=== PATIENT | male | born 1930 | race Caucasian/White ===

== ENCOUNTER 2020-04-08 22:42 | Emergency (ER) | payer OTHER ==
--- OUTSIDE RECORDS SUMMARY | 2020-04-08 22:43 | XMS REPORT | Continuity of Care Document ---
:1930 Author Organization [facility] t Address [address] [place] [address] [place] [id number] Care Team Providers Name Role Phone Unavailable Unavailable Unavailable Problems This patient has no known problems. Allergies, Adverse Reactions, Alerts This patient has no known allergies or adverse reactions. Medications This patient has no known medications. Procedures This patient has no known procedures. Results This patient has no known results.
[2020-04-09] MEDS ORDERED: NA CHLORIDE 0.9% 500 ML ONE (00:25)
[2020-04-09 01:01] LABS: Absolute Lymphocytes (CBC) 1.2 K/uL (0.7-4.9); Basophils % 0.1 % (0-1.3); Hematocrit 35.7 % (39.6-49.0); Lymphocytes % 11.1 % (15.3-44.8); MPV 10.2 fL (7.6-11.3); RBC Red Blood Cell Count 3.93 M/uL (4.33-5.43)
[2020-04-09 01:14] LABS: Urine RBC TNTC /HPF (NONE SEEN)
[2020-04-09 01:15] LABS: Urine Bacteria 20-50 /HPF (NONE SEEN); Urine Culture Reflex Order REFLEXED
[2020-04-09 01:22] LABS: Albumin 3.5 g/dL (3.4-5.0); Bilirubin Direct 0.1 mg/dL (0-0.2); Bilirubin Total 0.3 mg/dL (0.2-1.0); Potassium 4.1 mmol/L (3.5-5.1); Protein, Total 6.6 g/dL (6.4-8.2)
[2020-04-09] MEDS ORDERED: CEFTRIAXONE/SWI 1gm 1 GM/10 ML SYR ONE (01:47)
--- NOTE | 2020-04-09 03:11 | EDPHYS ---
Physician Documentation [facility] Name: Russ Strong Age: 89 yrs Sex: Male : 1930 Arrival Date: 04/08/2020 Time: 22:45 Bed 13 Private MD: ED Physician Thomas Henderson HPI: 04/08 23:30 This 89 yrs old Male presents to ER via Ambulatory with complaints of Penile cp Bleeding. 23:30 The patient presents with urinary symptoms, hematuria. Onset: The symptoms/episode cp began/occurred 2 day(s) ago. Associated signs and symptoms: Pertinent negatives: abdominal pain, dysuria, fever, vomiting. Severity of symptoms: in the emergency department the symptoms are unchanged, despite home interventions. Patient patient reports having similar episodes of hematuria after taking ASA in the past that usually goes away after stopping the ASA. Patient reports he last took ASA over 1 week ago. Historical: - Allergies: 23:48 Codeine; jb4 - Home Meds: 23:48 levothyroxine 125 mcg tab [Active]; Omeprazole Oral [Active]; Simvastatin Oral jb4 [Active]; aspirin 81 mg Oral chew [Active]; finasteride oral oral [Active]; - PMHx: 23:48 CVA; High Cholesterol; Hypothyroidism; Cardia Arrythmia; Hernia; jb4 - PSHx: 23:48 Hernia repair; Cholecystectomy; Shoulder; jb4 - Immunization history:: Adult Immunizations up to date. - Social history:: Smoking status: Patient denies any tobacco usage or history of. Patient/guardian denies using alcohol, street drugs. ROS: 23:35 Constitutional: Negative for body aches, chills, fever, poor PO intake. cp 23:35 Eyes: Negative for injury, pain, redness, and discharge. cp 23:35 ENT: Negative for ear pain, sore throat, difficulty swallowing, difficulty handling secretions. 23:35 Cardiovascular: Negative for chest pain, palpitations. 23:35 Respiratory: Negative for cough, shortness of breath, wheezing. 23:35 Abdomen/GI: Negative for abdominal pain, nausea, vomiting, and diarrhea. 23:35 Back: Negative for pain at rest, pain with movement. 23:35 : Positive for hematuria, Negative for burning with urination, testicular pain 23:35 Neuro: Negative for altered mental status, dizziness, headache, syncope, weakness. 23:35 All other systems are negative. Exam: 23:40 Constitutional: The patient appears in no acute distress, alert, awake, cp non-diaphoretic, non-toxic, well developed, well nourished. 23:40 Head/Face: Normocephalic, atraumatic. cp 23:40 Eyes: Periorbital structures: appear normal, Conjunctiva: normal, no exudate, no injection, Sclera: no appreciated abnormality, Lids and lashes: appear normal, bilaterally. 23:40 ENT: External ear(s): are unremarkable, Nose: is normal, Mouth: Lips: moist, Oral mucosa: moist, Posterior pharynx: Airway: no evidence of obstruction, patent. 23:40 Chest/axilla: Inspection: normal, Palpation: is normal, no crepitus, no tenderness. 23:40 Cardiovascular: Rate: normal, Rhythm: regular, Edema: is not appreciated, JVD: is not appreciated. 23:40 Respiratory: the patient does not display signs of respiratory distress, Respirations: normal, no use of accessory muscles, no retractions, labored breathing, is not present, Breath sounds: are clear throughout, no decreased breath sounds. 23:40 Abdomen/GI: Inspection: abdomen appears normal, Bowel sounds: active, all quadrants, Palpation: abdomen is soft and non-tender, in all quadrants. 23:40 Back: pain, is absent, ROM is normal. Vital Signs: 23:15 BP 148 / 93; Pulse 66; Resp 16; Temp 98.1(O); Pulse Ox 99% on R/A; Weight 77.11 kg (R); jb4 Height 5 ft. 11 in. (180.34 cm) (R); Pain 5/10; 08/06 00:00 BP 115 / 63; Pulse 66; Resp 16; Pulse Ox 96% on R/A; jb4 01:00 BP 107 / 67; Pulse 58; Resp 16; Pulse Ox 96% on R/A; jb4 02:00 BP 107 / 79; Pulse 57; Resp 16; Pulse Ox 100% on R/A; jb4 03:00 BP 126 / 72; Pulse 59; Resp 16; Pulse Ox 99% on R/A; jb4 04/08 23:15 Body Mass Index 23.71 (77.11 kg, 180.34 cm) jb4 MDM: 04/08 23:24 Patient medically screened. cp 08 00:54 Order name: Basic Metabolic Panel; Complete Time: 01:48 EDMS 08 01:48 Interpretation: Normal except: BUN 23; CRE 1.54; GFR 43; CA 8.4. cp 08 00:54 Order name: Liver (Hepatic) Function; Complete Time: 01:48 EDMS 08 00:54 Order name: Lipase; Complete Time: 01:48 EDMS 08 00:54 Order name: CBC with Automated Diff; Complete Time: 01:14 EDMS 08/ 01:14 Interpretation: Normal except: WBC 11.3; RBC 3.93; HGB 12.1; HCT 35.7; ADWOA% 79.5; LYM% cp 11.1; NEUT A 9.0. 08 00:54 Order name: Protime (+INR); Complete Time: 01:14 EDMS 08 00:54 Order name: PTT, Activated Partial Thromb; Complete Time: 01:14 EDMS 08 00:54 Order name: Urine Microscopic Only; Complete Time: 01:22 EDMS 0806 01:23 Interpretation: Normal except: UWBC 10-20; URBC TNTC; UBACT 20-50. cp 04/09 00:07 Order name: IV Saline Lock; Complete Time: 00:48 cp 04/09 00:07 Order name: Labs collected and sent; Complete Time: 00:48 cp 04/09 00:07 Order name: CT Stone Protocol cp 04/09 01:21 Order name: Urine Culture EDMS Administered Medications: 04/09 00:20 Drug: NS 0.9% 250 ml Route: IV; Rate: bolus; Site: right antecubital; jb4 00:48 Follow up: Response: No adverse reaction; IV Status: Completed infusion; IV Intake: jb4 250ml ; Administered using 500ml bag. Infusion continued at 100ml per hour per providers orders. 02:09 Drug: Rocephin 1 grams Route: IV; Rate: calculated rate; Site: right antecubital; jb4 02:12 Follow up: Response: No adverse reaction; IV Status: Completed infusion; IV Intake: [id number] Disposition: 04:29 Co-signature as Attending Physician, Thomas Henderson MD. [email or web address] Disposition: 04/09/20 03:11 Discharged to Home. Impression: Hematuria. - Condition is Stable. - Discharge Instructions: Hematuria, Adult. - Prescriptions for cefpodoxime 200 mg Oral Tablet - take 1 tablet by ORAL route every 12 hours for 10 days with food; 20 tablet. - Medication Reconciliation Form, Thank You Letter, Antibiotic Education, Prescription Opioid Use form. - Follow up: Kamari Conrad MD; When: 2 - 3 days; Reason: Recheck today's complaints. - Problem is new. - Symptoms have improved. Signatures: Dispatcher [employer] EDMS Roberto Jiang PA PA cp Robb Dowd, RN RN jb4 Thomas Henderson MD MD [email or web address] Corrections: (The following items were deleted from the chart) 01:30 01:22 BASIC METABOLIC PANEL+C.LAB.BRZ ordered. EDMS EDMS 01:30 01:22 CBC+H.LAB.BRZ ordered. EDMS EDMS 01:30 01:22 HEPATIC FUNCTION+C.LAB.BRZ ordered. EDMS EDMS 01:30 01:22 LIPASE+C.LAB.BRZ ordered. EDMS EDMS 01:30 01:22 PROTIME (+INR)+COAG.LAB.BRZ ordered. EDMS EDMS 01:30 01:22 PTT, ACTIVATED+COAG.LAB.BRZ ordered. EDMS EDMS 01:30 01:22 UA MICROSCOPIC+U.LAB.BRZ ordered. EDMS EDMS 01:48 01:48 Normal except: BUN 23; CRE 1.54; GFR 43. cp cp 03:40 03:11 04/09/2020 03:11 Discharged to Home. Impression: Hematuria. Condition is Stable. jb4 Forms are Medication Reconciliation Form, Thank You Letter, Antibiotic Education, Prescription Opioid Use. Follow up: Kamari Conrad; When: 2 - 3 days; Reason: Recheck today's complaints. Problem is new. Symptoms have improved. cp
--- NOTE | 2020-04-09 03:11 | ER ---
Nurse's Notes [facility] Name: Russ Strong Age: 89 yrs Sex: Male : 1930 Arrival Date: 04/08/2020 Time: 22:45 Bed 13 Private MD: Diagnosis: Hematuria Presentation: 04/08 23:15 Chief complaint: Patient states: I started bleeding Monday from my penis. It has gotten jb4 worse since then. It was just coming and going. Now it is pretty constant and I am passing clots. Some times the blood is bright and sometimes it is darker and clotting. 23:15 Coronavirus screen: Client denies travel out of the [place] in the last 14 days. At this jb4 time, the client does not indicate any symptoms associated with coronavirus-19. Ebola Screen: No symptoms or risks identified at this time. Initial Sepsis Screen: Does the patient meet any 2 criteria? No. Patient's initial sepsis screen is negative. Does the patient have a suspected source of infection? No. Patient's initial sepsis screen is negative. Risk Assessment: Do you want to hurt yourself or someone else? Patient reports no desire to harm self or others. Onset of symptoms was April 06, 2020. Transition of care: patient was not received from another setting of care. 23:15 Method Of Arrival: Ambulatory jb4 23:15 Acuity: JERO 3 jb4 Historical: - Allergies: 23:48 Codeine; jb4 - Home Meds: 23:48 levothyroxine 125 mcg tab [Active]; Omeprazole Oral [Active]; Simvastatin Oral jb4 [Active]; aspirin 81 mg Oral chew [Active]; finasteride oral oral [Active]; - PMHx: 23:48 CVA; High Cholesterol; Hypothyroidism; Cardia Arrythmia; Hernia; jb4 - PSHx: 23:48 Hernia repair; Cholecystectomy; Shoulder; jb4 - Immunization history:: Adult Immunizations up to date. - Social history:: Smoking status: Patient denies any tobacco usage or history of. Patient/guardian denies using alcohol, street drugs. Screenin:15 Abuse screen: Denies threats or abuse. Nutritional screening: No deficits noted. jb4 Tuberculosis screening: No symptoms or risk factors identified. Fall Risk None identified. Assessment: 23:15 General: Appears in no apparent distress. uncomfortable, Behavior is calm, cooperative, jb4 appropriate for age. Pain: Complains of pain in groin Pain does not radiate. Pain currently is 5 out of 10 on a pain scale. Quality of pain is described as burning, Pain began 2-3 days ago. Is intermittent. Neuro: Level of Consciousness is awake, alert, obeys commands, Oriented to person, place, time, situation. Cardiovascular: Patient's skin is warm and dry. Respiratory: Airway is patent Respiratory effort is even, unlabored, Respiratory pattern is regular, symmetrical. GI: No signs and/or symptoms were reported involving the gastrointestinal system. : harman blood, Reports burning with urination, Bloody urination. EENT: No signs and/or symptoms were reported regarding the EENT system. Derm: Skin is intact, Skin is pink, warm \T\ dry. Musculoskeletal: Circulation, motion, and sensation intact. Range of motion: intact in all extremities. 04/09 00:15 Reassessment: Patient and/or family updated on plan of care and expected duration. Pain jb4 level reassessed. Patient is alert, oriented x 3, equal unlabored respirations, skin warm/dry/pink. PT reports feeling better. Continues to urinate harman red blood. 01:15 Reassessment: No changes from previously documented assessment. Patient and/or family jb4 updated on plan of care and expected duration. Pain level reassessed. Patient is alert, oriented x 3, equal unlabored respirations, skin warm/dry/pink. 02:15 Reassessment: Patient and/or family updated on plan of care and expected duration. Pain jb4 level reassessed. Patient is alert, oriented x 3, equal unlabored respirations, skin warm/dry/pink. Pt reports feeling better than when he arrived. Continues to urinate harman red blood. 03:36 Reassessment: Patient and/or family updated on plan of care and expected duration. Pain jb4 level reassessed. Patient is alert, oriented x 3, equal unlabored respirations, skin warm/dry/pink. PT verbalized an understanding of D/c and follow up instructions. Denies questions or concerns. Ambulated out of ED with steady gait. Vital Signs: 04/08 23:15 BP 148 / 93; Pulse 66; Resp 16; Temp 98.1(O); Pulse Ox 99% on R/A; Weight 77.11 kg (R); jb4 Height 5 ft. 11 in. (180.34 cm) (R); Pain 01/11; 04/09 00:00 BP 115 / 63; Pulse 66; Resp 16; Pulse Ox 96% on R/A; jb4 01:00 BP 107 / 67; Pulse 58; Resp 16; Pulse Ox 96% on R/A; jb4 02:00 BP 107 / 79; Pulse 57; Resp 16; Pulse Ox 100% on R/A; jb4 03:00 BP 126 / 72; Pulse 59; Resp 16; Pulse Ox 99% on R/A; jb4 04/08 23:15 Body Mass Index 23.71 (77.11 kg, 180.34 cm) jb4 ED Course: 04/08 22:45 Patient arrived in ED. cf2 23:14 Robb Dowd, RN is Primary Nurse. jb4 23:15 Arm band placed on right wrist. jb4 23:15 Patient has correct armband on for positive identification. Placed in gown. Bed in low jb4 position. Call light in reach. Side rails up X 1. Pulse ox on. NIBP on. 23:19 Roberto Jiang PA is PHCP. cp 23:19 Thomas Henderson MD is Attending Physician. cp 23:36 Triage completed. jb4 04/09 02:04 CT Stone Protocol In Process Unspecified. EDMS 03:10 Kamari Conrad MD is Referral Physician. cp 03:39 No provider procedures requiring assistance completed. IV discontinued, intact, jb4 bleeding controlled, No redness/swelling at site. Pressure dressing applied. Administered Medications: 00:20 Drug: NS 0.9% 250 ml Route: IV; Rate: bolus; Site: right antecubital; jb4 00:48 Follow up: Response: No adverse reaction; IV Status: Completed infusion; IV Intake: jb4 250ml ; Administered using 500ml bag. Infusion continued at 100ml per hour per providers orders. 02:09 Drug: Rocephin 1 grams Route: IV; Rate: calculated rate; Site: right antecubital; jb4 02:12 Follow up: Response: No adverse reaction; IV Status: Completed infusion; IV Intake: [id number] Intake: 00:48 IV: 250ml; Total: 250ml. jb4 02:12 IV: 10ml; Total: 260ml. jb4 Outcome: 03:11 Discharge ordered by . tiny 03:39 Discharged to home ambulatory. jb4 03:39 Condition: stable 03:39 Discharge instructions given to patient, Instructed on discharge instructions, follow up and referral plans. medication usage, Demonstrated understanding of instructions, follow-up care, medications, Prescriptions given X 1. 03:40 Patient left the ED. jb4 Signatures: Dispatcher [employer] EDMS Roberto Jiang PA PA cp Bryson, James, RN RN jb4 Andrew Kidd cf2
[2020-04-09 03:46] VITALS: TEMP 98.1
[2020-04-09 03:51] VITALS: BP 126/72; O2SAT 99
--- NOTE | 2020-04-09 10:35 | RAD REPORT ---
EXAM DESCRIPTION: CT - Stone Protocol - 04/09/2020 2:04 am CLINICAL HISTORY: HEMATURIA COMPARISON: None. TECHNIQUE: Axial unenhanced CT imaging of the abdomen and pelvis performed. Reformatted coronal and sagittal images reviewed. A dose reduction technique was utilized with automated exposure control according to patient size. FINDINGS: Chronic lung bases. Heart is normal in size. Normal liver size and contour. A few calcified granulomas are present within the liver. Gallbladder h as been resected. Normal spleen and pancreas. Normal adrenal glands and kidneys. Mild abdominal aorta atherosclerosis. No aneurysm. Normal caliber inferior vena cava. There is a retroaortic left renal v ein. Small hiatal hernia. Normal remaining stomach. Small bowel loops appear normal. Appendix is not visua lized. Unremarkable colon. No ascites or free air. The bladder contains heterogeneous hyperdense debris in the dependent lumen. There is no bladder wall thickening. The prostate is 5.7 x 3.8 x 6.0 cm. No pelvic free fluid. There is significant lower tho racic and lumbar spondylosis. Intact bony pelvis. Normal hips. Small fat-containing right inguinal an d umbilical hernia. IMPRESSION: 1. Heterogeneous hyperdense debris in the dependent lumen of the bladder compatible with blood products. There is no visualized discrete mass. 2. Mild prostatomegaly. 3. Small hiatal hernia. 4. Small fat-containing right inguinal and umbilical hernia. Electronically signed by: Liv Stanley DO 04/09/2020 2:22 AM CDT Due to temporary technical issues with the PACS/Fluency reporting system, reports are being signed by the in house radiologist without review as a courtesy to ensure prompt reporting. The interpreting r adiologist is fully responsible for the content of the report.
== END 2020-04-09 03:40 | disposition home or self-care (01) ==
LOC: ER 22:42
DX: R31.9 Hematuria, unspecified (principal); E03.9 Hypothyroidism, unspecified; Z86.73 Personal history of transient ischemic attack (TIA), and cerebral infarction without residual deficits
CPT/HCPCS: 87088; 85025; 87086; 80048; 36415; 85610; 80076; 85730; 81015; 83690; 76377; 74176; J0696; J7040; 96365; 96375; 99284

== ENCOUNTER 2021-02-15 12:00 | Emergency (ER) | payer OTHER ==
[2021-02-15 12:59] LABS: Absolute Lymphocytes (CBC) 0.8 K/uL (0.7-4.9); Basophils % 0.4 % (0-1.3); Hematocrit 39.1 % (39.6-49.0); MPV 9.5 fL (7.6-11.3); RBC Red Blood Cell Count 4.28 M/uL (4.33-5.43)
[2021-02-15] MEDS ORDERED: MECLIZINE HCL 12.5 MG TAB ONE (13:05)
[2021-02-15] MEDS ORDERED: NA CHLORIDE 0.9% 1,000 ML ONE (13:05)
[2021-02-15] MEDS ORDERED: ONDANSETRON 4 MG/2 ML VIAL ONE (13:05)
[2021-02-15] MEDS ORDERED: FAMOTIDINE 20 MG/2 ML VIAL IV ONE (13:05)
[2021-02-15 13:06] LABS: Protime INR 0.97
--- NOTE | 2021-02-15 13:10 | RAD REPORT ---
EXAM DESCRIPTION: CT - Head Brain Wo Cont - 02/15/2021 1:01 pm CLINICAL HISTORY: DIZZINESS, weakness, presyncopal episode COMPARISON: Chest Pa And Lat (2 Views) dated 01/08/2020 TECHNIQUE: Axial 5 mm thick images of the head were obtained without IV contrast. All CT scans are performed using dose optimization technique as appropriate and may include automated exposure control or mA/KV adjustment according to patient size. FINDINGS: No intracranial hemorrhage, mass, edema or shift of mid-line structures. No acute cortical based infarction. No cortical edema or sulcal effacement. Patient has moderate severity atrophy with ventricles in proportion. No abnormal extra-axial fluid collections. Chronic ischemic change is rela tively mild. Mastoid air cells and visualized portions of the paranasal sinuses are clear. No acute bony findings. IMPRESSION: Moderate severity atrophy with ventricles in proportion. Chronic ischemic changes are mi ld for age. No acute intracranial finding identifiable. Chronic ischemic changes can mask nonhemorrhagic acute infarction. MR brain followup can be obtained if there is ongoing concern for acute ischemia.
[2021-02-15 13:18] LABS: Bilirubin Direct 0.2 mg/dL (0-0.2); Bilirubin Total 0.5 mg/dL (0.2-1.0); Potassium 4.1 mmol/L (3.5-5.1)
[2021-02-15 13:19] LABS: Albumin 3.7 g/dL (3.4-5.0); Magnesium 2.8 mg/dL (1.8-2.4); Protein, Total 6.7 g/dL (6.4-8.2); Troponin (Emerg Dept Use Only) 0.03 ng/mL (0.0-0.045)
--- NOTE | 2021-02-15 13:53 | RAD REPORT ---
EXAM DESCRIPTION: RAD - Chest Single View - 02/15/2021 1:40 pm CLINICAL HISTORY: COUGH COMPARISON: Two view chest January 2020 TECHNIQUE: AP portable chest image was obtained 02/15/2021 1:40 pm . FINDINGS: No focal lung parenchymal process. Interstitial markings are prominent but not clearly dif ferent. Cardiac silhouette is upper normal to slightly enlarged. Pulmonary vasculature not clearly ou tside of normal range. This may be the difference between AP in comparison PA positioning. No signifi cant failure or volume overload suspected. No measurable pleural effusion and no pneumothorax. No acu te bony abnormality seen. No acute aortic findings suspected. IMPRESSION: No acute cardiopulmonary process. Heart size and central vasculature or increased over comparison which may be a technique difference. No significant failure or volume overload seen but the patient can be evaluated and monitored as que anted.
[2021-02-15 14:19] LABS: Urine Blood Negative (Negative); Urine Glucose Negative (Negative); Urine Protein 1+ (Negative); Urine pH 7.5 (5.0-7.0)
--- NOTE | 2021-02-15 15:45 | ER ---
Nurse's Notes [facility] Name: Russ Strong Age: 89 yrs Sex: Male : 1930 Arrival Date: 02/15/2021 Time: 12:00 Bed External Waiting Private MD: Diagnosis: Other chest pain;Angina pectoris;Dyspnea;Dizziness and giddiness Presentation: 02/15 12:17 Chief complaint: Patient states: Dizziness that began this morning. Pt went 11 miles ss offshore on a boat to go fishing when he decided he didn't feel well enough that he needed to come to the ER. 12:17 Method Of Arrival: Ambulatory ss 12:19 Coronavirus screen: Client denies travel out of the [place] in the last 14 days. Ebola ss Screen: Patient denies exposure to infectious person. Patient denies travel to an Ebola-affected area in the 21 days before illness onset. Initial Sepsis Screen: Does the patient meet any 2 criteria? No. Patient's initial sepsis screen is negative. Does the patient have a suspected source of infection? No. Patient's initial sepsis screen is negative. Risk Assessment: Do you want to hurt yourself or someone else? Patient reports no desire to harm self or others. Onset of symptoms was February 15, 2021. 12:19 Acuity: JERO 3 ss Historical: - Allergies: 12:21 Codeine; ss - PMHx: 12:21 Cardia Arrythmia; CVA; Hernia; High Cholesterol; Hypothyroidism; ss - PSHx: 12:21 Hernia repair; Cholecystectomy; Shoulder; ss - Immunization history:: Adult Immunizations up to date. - Social history:: Smoking status: Patient denies any tobacco usage or history of. - Family history:: not pertinent. Screenin:00 Abuse screen: Denies threats or abuse. Denies injuries from another. Nutritional ph screening: No deficits noted. Tuberculosis screening: No symptoms or risk factors identified. Fall Risk None identified. Assessment: 12:25 Reassessment: Pt noted to be intermittently tearful and anxious, states that his ph here in November, currently is smiling and talking w/ family at bedside. 12:57 General: Appears in no apparent distress. comfortable, slender, well groomed, Behavior ph is calm, cooperative, appropriate for age, Denies fever, feeling ill. Pain: Denies pain. Neuro: Level of Consciousness is awake, alert, obeys commands, Oriented to person, place, time, situation. 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 Respiratory: Reports R sided chest pain w/ deep breathing Airway is patent Respiratory effort is even, unlabored, Respiratory pattern is regular, symmetrical. Respiratory: Denies cough, shortness of breath. GI: No signs and/or symptoms were reported involving the gastrointestinal system. Derm: Skin is intact, Skin is pink, warm \T\ dry. 13:30 Reassessment: Patient appears in no apparent distress at this time. Patient and/or hb family updated on plan of care and expected duration. Pain level reassessed. Patient is alert, oriented x 3, equal unlabored respirations, skin warm/dry/pink. 14:13 Reassessment: Patient appears in no apparent distress at this time. Patient and/or ph family updated on plan of care and expected duration. Pain level reassessed. Patient is alert, oriented x 3, equal unlabored respirations, skin warm/dry/pink. Pt ambulated to restroom w/ no difficulty noted, denies dizziness at this time, urine sample obtained Patient states feeling better. 15:23 Reassessment: Patient appears in no apparent distress at this time. Patient and/or hb family updated on plan of care and expected duration. Pain level reassessed. Patient is alert, oriented x 3, equal unlabored respirations, skin warm/dry/pink. 16:50 Reassessment: Dr Olguin at bedside to speak w/ pt about admission, pt states that he ph feels better and does not want to be admitted to the hospital. Dr Olguin states that he will see the pt in his office tomorrow and will also contact Dr Rasmussen for follow up. Pt to sign out AMA. Vital Signs: 12:19 BP 124 / 73; Pulse 73; Resp 18; Temp 97.8(TE); Pulse Ox 100% on R/A; Weight 77.11 kg; ss Height 5 ft. 11 in. (180.34 cm); Pain 0/10; 13:00 BP 117 / 76; Pulse 87; Resp 18; Pulse Ox 98% on R/A; ph 13:41 BP 123 / 68; Pulse 85; Resp 16; Pulse Ox 98% on R/A; ph 15:00 BP 120 / 70; Pulse 61; Resp 15; Pulse Ox 100% on R/A; hb 15:32 BP 136 / 78; Pulse 86; Resp 14; Pulse Ox 100% on R/A; hb 16:55 BP 134 / 70; Pulse 84; Resp 18; Temp 97.8; Pulse Ox 99% on R/A; ph 12:19 Body Mass Index 23.71 (77.11 kg, 180.34 cm) ED Course: 12:00 Patient arrived in ED. ds1 12:20 Triage completed. ss 12:21 Arm band placed on right wrist. ss 12:28 EKG done, by ED staff, reviewed by Roberto Doherty MD. em1 12:35 Roberto Doherty MD is Attending Physician. yancy 12:43 Kira Ghotra, ISIDORO is Primary Nurse. ph 12:57 Initial lab(s) drawn, by nh, sent to lab. Inserted saline lock: 22 gauge in right ph forearm, using aseptic technique. Blood collected. Patient maintains SpO2 saturation greater than 95% on room air. 13:00 Patient has correct armband on for positive identification. Placed in gown. Bed in low ph position. Call light in reach. Side rails up X 1. hat block bench hand on. Pulse ox on. NIBP on. Door closed. Noise minimized. Warm blanket given. 13:01 CT Head Brain wo Cont In Process Unspecified. EDMS 13:41 XRAY Chest (1 view) In Process Unspecified. EDMS 15:44 David Olguin MD is Hospitalizing Provider. yancy 16:55 Francis Rasmussen MD is Referral Physician. yancy 16:56 No provider procedures requiring assistance completed. IV discontinued, intact, ph bleeding controlled, No redness/swelling at site. Pressure dressing applied. Administered Medications: 12:54 Drug: NS 0.9% 1000 ml Route: IV; Rate: 1 bolus; Site: right antecubital; hb 14:12 Follow up: Response: No adverse reaction; IV Status: Completed infusion; IV Intake: ph 1000ml 12:54 Drug: Meclizine 50 mg Route: PO; hb 14:12 Follow up: Response: No adverse reaction ph 12:54 Drug: Zofran (Ondansetron) 4 mg Route: IVP; Site: right antecubital; hb 14:12 Follow up: Response: No adverse reaction ph 12:54 Drug: Pepcid (famotidine) 20 mg Route: IVP; Site: right antecubital; hb 14:12 Follow up: Response: No adverse reaction ph Intake: 14:12 IV: 1000ml; Total: 1000ml. ph Outcome: 15:44 Decision to Hospitalize by Provider. [facility] 16:56 AMA AMA form signed ph 16:56 Condition: stable 16:56 Patient left the ED. ph Signatures: Dispatcher [employer] EDMS Roberto Doherty MD MD cha Sanford, Demi ds1 Juanito, Kristian em1 Maya Bruce RN RN Kira Ghotra RN RN Irma Rodriguez RN RN Corrections: (The following items were deleted from the chart) 16:56 16:50 Reassessment: Dr Olguin at bedside to speak w/ pt about admission, pt states that ph he feels better and does not want to be admitted to the hospital. Dr Olguin states that he will see the pt in his office tomorrow and will also contact Dr Rasmussen for follow up ph
--- NOTE | 2021-02-15 15:45 | EDPHYS ---
Physician Documentation [facility] Name: Russ Strong Age: 89 yrs Sex: Male : 1930 Arrival Date: 02/15/2021 Time: 12:00 Bed External Waiting Private MD: ED Physician Roberto Doherty HPI: 02/15 15:39 This 89 yrs old Male presents to ER via Ambulatory with complaints of yancy Dizziness and chest pain. 15:39 The patient presents with dizziness, feeling faint. Onset: The symptoms/episode yancy began/occurred just prior to arrival, this morning. Context: occurred while the patient was exercising, walking. Modifying factors: The symptoms are alleviated by lying down, the symptoms are aggravated by walking. Associated signs and symptoms: The patient has no apparent associated signs or symptoms. Severity of symptoms: At their worst the symptoms were mild in the emergency department the symptoms are unchanged. Patient's baseline: Neuro: alert and fully oriented, Motor: no deficits. The patient has not experienced similar symptoms in the past. Historical: - Allergies: 12:21 Codeine; ss - PMHx: 12:21 Cardia Arrythmia; CVA; Hernia; High Cholesterol; Hypothyroidism; ss - PSHx: 12:21 Hernia repair; Cholecystectomy; Shoulder; ss - Immunization history:: Adult Immunizations up to date. - Social history:: Smoking status: Patient denies any tobacco usage or history of. - Family history:: not pertinent. ROS: 15:39 Constitutional: Negative for fever, chills, and weight loss, Eyes: Negative for injury, yancy pain, redness, and discharge, ENT: Negative for injury, pain, and discharge, Neck: Negative for injury, pain, and swelling, Respiratory: Negative for shortness of breath, cough, wheezing, and pleuritic chest pain, Abdomen/GI: Negative for abdominal pain, nausea, vomiting, diarrhea, and constipation, Back: Negative for injury and pain, : Negative for injury, bleeding, discharge, and swelling, MS/Extremity: Negative for injury and deformity, Skin: Negative for injury, rash, and discoloration, Psych: Negative for depression, anxiety, suicide ideation, homicidal ideation, and hallucinations, Allergy/Immunology: Negative for hives, rash, and allergies, Endocrine: Negative for neck swelling, polydipsia, polyuria, polyphagia, and marked weight changes, Hematologic/Lymphatic: Negative for swollen nodes, abnormal bleeding, and unusual bruising. 15:39 Neuro: Positive for dizziness. Exam: 15:39 Constitutional: This is a well developed, well nourished patient who is awake, alert, yancy and in no acute distress. Head/Face: Normocephalic, atraumatic. Eyes: Pupils equal round and reactive to light, extra-ocular motions intact. Lids and lashes normal. Conjunctiva and sclera are non-icteric and not injected. Cornea within normal limits. Periorbital areas with no swelling, redness, or edema. ENT: Nares patent. No nasal discharge, no septal abnormalities noted. Tympanic membranes are normal and external auditory canals are clear. Oropharynx with no redness, swelling, or masses, exudates, or evidence of obstruction, uvula midline. Mucous membranes moist. Neck: Trachea midline, no thyromegaly or masses palpated, and no cervical lymphadenopathy. Supple, full range of motion without nuchal rigidity, or vertebral point tenderness. No Meningismus. Chest/axilla: Normal chest wall appearance and motion. Nontender with no deformity. No lesions are appreciated. Cardiovascular: Regular rate and rhythm with a normal S1 and S2. No gallops, murmurs, or rubs. Normal PMI, no JVD. No pulse deficits. Respiratory: Lungs have equal breath sounds bilaterally, clear to auscultation and percussion. No rales, rhonchi or wheezes noted. No increased work of breathing, no retractions or nasal flaring. Abdomen/GI: Soft, non-tender, with normal bowel sounds. No distension or tympany. No guarding or rebound. No evidence of tenderness throughout. Back: No spinal tenderness. No costovertebral tenderness. Full range of motion. Male : Normal genitalia with no discharge or lesions. Skin: Warm, dry with normal turgor. Normal color with no rashes, no lesions, and no evidence of cellulitis. MS/ Extremity: Pulses equal, no cyanosis. Neurovascular intact. Full, normal range of motion. Neuro: Awake and alert, GCS 15, oriented to person, place, time, and situation. Cranial nerves II-XII grossly intact. Motor strength 5/5 in all extremities. Sensory grossly intact. Cerebellar exam normal. Normal gait. Psych: Awake, alert, with orientation to person, place and time. Behavior, mood, and affect are within normal limits. 15:39 Musculoskeletal/extremity: DVT Exam: No signs of deep vein thrombosis. no pain, no swelling, no tenderness, negative Homans' sign noted on exam, no appreciated bluish discoloration, no erythema, no increased warmth. 16:05 ECG was reviewed by the Attending Physician. [facility] Vital Signs: 12:19 BP 124 / 73; Pulse 73; Resp 18; Temp 97.8(TE); Pulse Ox 100% on R/A; Weight 77.11 kg; ss Height 5 ft. 11 in. (180.34 cm); Pain 0/10; 13:00 BP 117 / 76; Pulse 87; Resp 18; Pulse Ox 98% on R/A; ph 13:41 BP 123 / 68; Pulse 85; Resp 16; Pulse Ox 98% on R/A; ph 15:00 BP 120 / 70; Pulse 61; Resp 15; Pulse Ox 100% on R/A; hb 15:32 BP 136 / 78; Pulse 86; Resp 14; Pulse Ox 100% on R/A; hb 16:55 BP 134 / 70; Pulse 84; Resp 18; Temp 97.8; Pulse Ox 99% on R/A; ph 12:19 Body Mass Index 23.71 (77.11 kg, 180.34 cm) ss MDM: 12:41 Patient medically screened. yancy 15:45 Differential diagnosis: cardiac arrhythmia, CVA, generalized weakness, idiopathic yancy dizziness, near-syncope. Data reviewed: vital signs, nurses notes, lab test result(s), EKG, radiologic studies, CT scan, plain films. 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 Test interpretation: by ED physician or midlevel provider: ECG, plain radiologic studies. Counseling: I had a detailed discussion with the patient and/or guardian regarding: the historical points, exam findings, and any diagnostic results supporting the discharge/admit diagnosis, lab results, radiology results, the need for further work-up and treatment in the hospital. 02/15 12:39 Order name: Basic Metabolic Panel [facility] 02/15 12:39 Order name: CBC with Diff; Complete Time: 15:37 [facility] 02/15 12:39 Order name: LFT's; Complete Time: 15:37 [facility] 02/15 12:39 Order name: Magnesium; Complete Time: 15:37 [facility] 02/15 12:39 Order name: NT PRO-BNP; Complete Time: 15:37 [facility] 02/15 12:39 Order name: PT-INR; Complete Time: 15:37 [facility] 02/15 12:39 Order name: Troponin (emerg Dept Use Only); Complete Time: 15:37 [facility] 02/15 12:39 Order name: XRAY Chest (1 view); Complete Time: 15:37 [facility] 02/15 12:39 Order name: CT Head Brain wo Cont; Complete Time: 15:37 [facility] 02/15 12:40 Order name: Basic Metabolic Panel; Complete Time: 15:37 EDMS 02/15 14:19 Order name: Urine Dipstick-Ancillary; Complete Time: 15:37 EDTX 02/15 15:49 Order name: Ptt, Activated ph 02/15 16:04 Order name: TSH [facility] 02/15 12:39 Order name: EKG; Complete Time: 12:40 [facility] 02/15 12:39 Order name: Cardiac monitoring; Complete Time: 12:55 [facility] 02/15 12:39 Order name: EKG - Nurse/Tech; Complete Time: 12:54 [facility] 02/15 12:39 Order name: IV Saline Lock; Complete Time: 12:54 [facility] 02/15 12:39 Order name: Labs collected and sent; Complete Time: 12:55 [facility] 02/15 12:39 Order name: O2 Per Protocol; Complete Time: 12:55 [facility] 02/15 12:39 Order name: O2 Sat Monitoring; Complete Time: 12:55 [facility] 02/15 12:39 Order name: Urine Dipstick-Ancillary (obtain specimen); Complete Time: 14:12 [facility] 02/15 15:59 Order name: CONS Physician Consult EDMS EC:05 Rate is 74 beats/min. Rhythm is regular. QRS [place] is Normal. [place] interval is normal. QRS yancy interval is normal. QT interval is normal. No Q waves. T waves are Normal. No ST changes noted. Clinical impression: NSR w/ Non-specific ST/T Changes and No evidence of ischemia. Interpreted by me. Reviewed by me. Administered Medications: 12:54 Drug: NS 0.9% 1000 ml Route: IV; Rate: 1 bolus; Site: right antecubital; hb 14:12 Follow up: Response: No adverse reaction; IV Status: Completed infusion; IV Intake: ph 1000ml 12:54 Drug: Meclizine 50 mg Route: PO; hb 14:12 Follow up: Response: No adverse reaction ph 12:54 Drug: Zofran (Ondansetron) 4 mg Route: IVP; Site: right antecubital; hb 14:12 Follow up: Response: No adverse reaction ph 12:54 Drug: Pepcid (famotidine) 20 mg Route: IVP; Site: right antecubital; hb 14:12 Follow up: Response: No adverse reaction ph Disposition: 02/15/21 16:54 Patient has left against medical advice. Impression: Other chest pain, Angina pectoris, Dyspnea, Dizziness and giddiness. - Patients states they are going to Home. - Condition is Serious. Follow up: Private Physician; When: Upon discharge from the Emergency Department; Reason: Recheck today's complaints, Continuance of care, Re-evaluation by your physician. Follow up: Francis Rasmussen MD; When: Upon discharge from the Emergency Department; Reason: Recheck today's complaints, Continuance of care, Re-evaluation by your physician. - Problem is new. - Symptoms have improved. Signatures: Dispatcher [employer] EDMS Roberto Doherty MD MD cha Smirch, Shelby, RN RN Kira Ghotra RN RN Irma Rodriguez RN RN Corrections: (The following items were deleted from the chart) 16:53 15:44 Hospitalization Ordered by David Olguin MD for Observation. Preliminary diagnosis yancy is Dizziness and giddiness; Chest pain, unspecified; Angina pectoris. Bed requested for Telemetry/MedSurg (observation). Status is Observation. Condition is Fair. Problem is new. Symptoms have improved. yancy 16:55 16:54 02/15/2021 16:54 Patients has left against medical advice. Impression: Other yancy chest pain; Angina pectoris; Dyspnea; Dizziness and giddiness. Patient states they are going to Home. Condition is Serious. Follow up: Private Physician; When: Upon discharge from the Emergency Department; Reason: Recheck today's complaints, Continuance of care, Re-evaluation by your physician. Problem is new. Symptoms have improved. yancy 16:56 16:55 02/15/2021 16:54 Patients has left against medical advice. Impression: Other ph chest pain; Angina pectoris; Dyspnea; Dizziness and giddiness. Patient states they are going to Home. Condition is Serious. Follow up: Private Physician; When: Upon discharge from the Emergency Department; Reason: Recheck today's complaints, Continuance of care, Re-evaluation by your physician. Follow up: Francis Rasmussen; When: Upon discharge from the Emergency Department; Reason: Recheck today's complaints, Continuance of care, Re-evaluation by your physician. Problem is new. Symptoms have improved. yancy
--- NOTE | 2021-02-15 16:51 | P.CNS ---
Date of Consult: 02/15/21 Reason for Consult: chest pain Primary Care Provider: juventino Chief Complaint: atypical angina History of Present Illness: Patient is an office patient of mine. He has a history of htn, afib and constipation. He woke up this morning with a substernal feeling of "not being right". This was at 5 am. He was going fishing with his friends. Was on the water for 3 hours when he started feeling dizzy. The patient was having worsening pressure in his chest. He was able to walk 15 feet when he had to sit down due to dizziness. He called my office and Dr. Rasmussen's office was told by both to go to the ER. The patient was very tearful when he got here. He lost his in this hospital a few months ago. Recieved a lt of fluids in the ER. Is currently feeling much better and wishes to go home. - Past Medical/Surgical History -: grief -: constipation -: atrial fib Review of Systems 10-point ROS is otherwise unremarkable Cardiovascular: Chest Pain, Light Headedness Physical Examination General: Alert, In no apparent distress HEENT: Atraumatic, PERRLA, Mucous membr. moist/pink, EOMI, Sclerae nonicteric Neck: Supple, 2+ carotid pulse no bruit, No LAD, Without JVD or thyroid abnormality Respiratory: Clear to auscultation bilaterally, Normal air movement Cardiovascular: Regular rate/rhythm, Normal S1 S2 Gastrointestinal: Normal bowel sounds, No tenderness Musculoskeletal: No tenderness Integumentary: No rashes Neurological: Normal gait, Normal speech, Normal tone, Normal affect Lymphatics: No axilla or inguinal lymphadenopathy Laboratory Data (last 24 hrs) 02/15/21 15:49: APTT 28.5 02/15/21 12:50: PT 11.1, INR 0.97 02/15/21 12:50: WBC 8.60, Hgb 13.1 L, Hct 39.1 L, Plt Count 242 02/15/21 12:50: Sodium 139, Potassium 4.1, BUN 18, Creatinine 1.47 H, Glucose 109 H, Magnesium 2.8 H, Total Bilirubin 0.5, AST 28, ALT 56, Alkaline Phosphatase 72 - Problems (1) Chest pain Current Visit: Yes Status: Acute Plan: would like to keep him in the hospital. However the patient refuses. Will have him follow up with me tomorrow. Will get him into see Dr. Rasmussen as well. Have tried several times to get him to stay. However the patient is resolved not to Qualifiers: Ischemic chest pain type: other angina pectoris type Critical Care: No Time Spent Managing Pts care (In Minutes): 30
[2021-02-15 17:08] VITALS: TEMP 97.8
[2021-02-15 17:16] VITALS: BP 134/70; O2SAT 99
--- NOTE | 2021-02-16 10:29 | EKG ---
Test Date: 2021-02-15 Test Time: 12:26:01 Promotional Demonstrator: MACK MEASUREMENT RESULTS: Intervals: Rate: 74 MS: 174 QRSD: 136 QT: 398 QTc: 441 [place]: P: 21 MS: 174 QRS: 16 T: 55 INTERPRETIVE STATEMENTS: Normal sinus rhythm Right bundle branch block Abnormal ECG Compared to ECG 04/06/2006 11:41:30 Right bundle-branch block now present Atrial premature complex(es) no longer present Electronically Signed On 02-16-21 10:25:54 CDT by Francis Rasmussen
== END 2021-02-15 16:56 | disposition left against medical advice (07) ==
LOC: ER 12:00 → ERHOLD 16:02 → UNDOADMOB 16:02
DX: I20.9 Angina pectoris, unspecified (principal); I10 Essential (primary) hypertension; I48.91 Unspecified atrial fibrillation; R07.89 Other chest pain; R06.00 Dyspnea, unspecified; Z86.73 Personal history of transient ischemic attack (TIA), and cerebral infarction without residual deficits; Z88.5 Allergy status to narcotic agent
CPT/HCPCS: 93005; 85025; 80048; 36415; 83735; 85610; 80076; 85730; 84443; 81003; 84484; 83880; 70450; 71045; J7030; J2405; 96361; 96374; 96375; 99285

== ENCOUNTER 2022-02-04 17:46 | Observation (INO) | payer OTHER ==
--- OUTSIDE RECORDS SUMMARY | 2022-02-04 17:49 | XMS REPORT | Continuity of Care Document ---
:1930 Author Organization [facility] t Address [address] [place] [address] Care Team Providers Name Role Phone Randall Swift Attending Clinician Unavailable Problems This patient has no known problems. Allergies, Adverse Reactions, Alerts This patient has no known allergies or adverse reactions. Medications This patient has no known medications. Procedures This patient has no known procedures. Encounters Start End Encounter Admission Attending Care Care Encounter Source Date/Time Date/Time Type Type Clinicians Facility Department ID 2021-11-15 Outpatient Swift, [facility] [id number] Common 13:15:01 Abdirahman [facility] 2021-11-10 Outpatient Swift, [facility] [id number] Common 15:25:01 Abdirahman [facility] 2021-11-02 Outpatient Swift, [facility] [id number] Common 08:42:02 Abdirahman [facility] 2021-09-29 Outpatient Swift, [facility] [id number] Common 12:36:28 Abdirahman [id number] [facility] 2021-09-29 Outpatient [facility] [id number] Common 12:33:08 [id number] [facility] 2021-11-10 2021-11-10 ambulatory [facility] [id number] Common 00:00:00 00:00:00 [facility] Results This patient has no known results.
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
[2022-02-04] MEDS ORDERED: LIDOCAINE 1% W/EPI 1:100,000 MDV 20 ML VIAL ONE (18:53)
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
[2022-02-04] MEDS ORDERED: ACETAMINOPHEN 500 MG TAB ONE (21:17)
[2022-02-04 22:17] LABS: Absolute Lymphocytes (CBC) 1.2 K/uL (0.7-4.9); Lymphocytes % 14.1 % (15.3-44.8); MPV 9.9 fL (7.6-11.3); RBC Red Blood Cell Count 4.48 M/uL (4.33-5.43)
[2022-02-04 22:19] LABS: Protime INR 1.09
[2022-02-04 22:30] LABS: Albumin 3.6 g/dL (3.4-5.0); Bilirubin Direct 0.2 mg/dL (0-0.2); Bilirubin Total 0.5 mg/dL (0.2-1.0); Magnesium 2.1 mg/dL (1.8-2.4); Potassium 3.6 mmol/L (3.5-5.1); Protein, Total 7.2 g/dL (6.4-8.2); Troponin High Sensitivity 11.8 pg/mL (<58.9)
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
[2022-02-05] MEDS ORDERED: NA CHLORIDE 0.9% 1,000 ML IV SCH (03:32)
[2022-02-05] MEDS ORDERED: ACETAMINOPHEN 500 MG TAB PO PRN (03:32)
[2022-02-05] MEDS ORDERED: ONDANSETRON 4 MG/2 ML VIAL IV PRN (03:32)
[2022-02-05 04:47] VITALS: O2SAT 98
[2022-02-05 06:06] VITALS: BP 131/66
[2022-02-05 06:17] VITALS: BMI 22.6
[2022-02-05] MEDS ORDERED: NA CHLORIDE 0.9% 1,000 ML ONE (06:34)
[2022-02-05 07:02] LABS: Urine Blood Negative (Negative); Urine Glucose Negative (Negative); Urine Protein 1+ (Negative); Urine Specific Gravity 1.015 (1.005-1.030); Urine pH 6.5 (5.0-7.0)
[2022-02-05 07:07] LABS: Urine Appearance Clear (Clear); Urine Bilirubin Negative (Negative); Urine Blood Negative (Negative); Urine Color Yellow (Yellow); Urine Glucose Negative (Negative); Urine Protein 1+ (Negative); Urine Specific Gravity 1.015 (1.005-1.030); Urine Urobilinogen 0.2 mg/dL (0.2-1.0); Urine pH 6.5 (5.0-7.0)
[2022-02-05 07:11] LABS: Urine Microscopic Reflex ORDER UMIC
[2022-02-05 07:26] LABS: Urine Bacteria NONE SEEN /HPF (NONE SEEN); Urine RBC <5 /HPF (NONE SEEN)
[2022-02-05 08:49] VITALS: TEMP 97.9
[2022-02-05] MEDS ORDERED: ZINC SULFATE 220 MG CAP PO SCH (09:00)
[2022-02-05] MEDS ORDERED: ENOXAPARIN 30 MG/0.3 ML SQ SCH (09:00)
[2022-02-05] MEDS ORDERED: ASCORBIC ACID 500 MG TABLET PO SCH (09:00)
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
--- NOTE | 2022-02-06 12:52 | EKG ---
Test Date: 2022-02-04 Test Time: 22:33:36 Sonar Watchstander: JOEY MEASUREMENT RESULTS: Intervals: Rate: 66 MT: 178 QRSD: 138 QT: 416 QTc: 436 [place]: P: 54 MT: 178 QRS: 16 T: 77 INTERPRETIVE STATEMENTS: Normal sinus rhythm Right bundle branch block Abnormal ECG Compared to ECG 02/15/2021 12:26:01 No significant changes Electronically Signed On 02-06-22 12:51:34 CDT by Power Byrd
--- NOTE | 2022-02-07 10:29 | RAD REPORT ---
EXAM DESCRIPTION: RAD - Chest Single View - 02/04/2022 10:33 pm CLINICAL HISTORY: Fall. COMPARISON: None. TECHNIQUE: Single view AP chest radiograph(s). FINDINGS: Trace perihilar interstitial thickening. No infiltrate identified. No pleural effusion. No pneumothorax. Nonenlarged cardiomediastinal silhouette. No significant osseous abnormality. IMPRESSION: No acute cardiopulmonary abnormality identified by radiograph. Electronically signed by: Loretta Goldstein MD 02/04/2022 10:54 PM CDT Due to temporary technical issues with the PACS/Fluency reporting system, reports are being signed by the in house radiologist without review as a courtesy to ensure prompt reporting. The interpreting r adiologist is fully responsible for the content of the report.
== END 2022-02-05 11:25 | disposition home or self-care (01) ==
LOC: ER 17:46 → ERHOLD 23:11
PROVIDERS: ADMIT Internal Medicine; ATTEND Internal Medicine
PROC: 0HQ1XZZ Repair Face Skin, External Approach (ICD-10-PCS; principal; 2022-02-04)
DX: U07.1 COVID-19 (principal); R53.1 Weakness; W19.XXXA Unspecified fall, initial encounter; Y92.238 Other place in hospital as the place of occurrence of the external cause; S06.0X0A Concussion without loss of consciousness, initial encounter; S02.2XXA Fracture of nasal bones, initial encounter for closed fracture; S01.112A Laceration without foreign body of left eyelid and periocular area, initial encounter; V18.2XXA Unspecified pedal cyclist injured in noncollision transport accident in nontraffic accident, initial encounter; N17.9 Acute kidney failure, unspecified; I95.9 Hypotension, unspecified; E03.9 Hypothyroidism, unspecified; I49.9 Cardiac arrhythmia, unspecified; Z86.73 Personal history of transient ischemic attack (TIA), and cerebral infarction without residual deficits; Z79.899 Other long term (current) drug therapy; Z79.82 Long term (current) use of aspirin
CPT/HCPCS: 12011; 93005; 85025; 80048; 36415; 83735; 85610; 80076; 84484; 83880; 87804 ×2; 70450; 72125; 70486; 76377; 71045; 99285; U0003; J7030; G0378 ×2; 81003; 81015